=== PATIENT | female | born 1990 | race Caucasian/White ===

== ENCOUNTER 2017-05-28 09:15 | Observation (INO) ==
[2017-05-28] MEDS ORDERED: Naloxone 0.4 MG/ML INJ IVP PRN (15:22)
[2017-05-28] MEDS ORDERED: Acetaminophen 325 MG TABLET PO PRN (15:23)
--- NOTE | 2017-05-28 15:45 | Internal Med History&Physical ---
<Violet Mcguire - Last Filed: 05/28/17 16:27> Date of Encounter: 05/28/17 Time of Encounter: 14:00 Assessment and Plan (1) Abdominal pain Current visit: Yes Status: Chronic For the past 3 weeks patient has been expressing lower abdominal pain with cramping, as well as nausea vomiting diarrhea. She has had a 7 pound weight loss in [address] completed May 16 demonstrated normal large bowel and small bowel prominent stranding and multiple enlarged lymph nodes within the enteric root. No leukocytosis no fever we will keep patient nothing by mouth for now we have consulted GI 2 we will give IV fluids 3 Zofran for nausea, morphine for pain Qualifiers: Abdominal location: lower abdomen, unspecified Qualified Code(s): R10.30 - Lower abdominal pain, unspecified (2) Diarrhea Current visit: Yes Status: Chronic 1 patient has been experiencing loose watery diarrhea for the past 3 weeks. We will obtain GI panel and stool for C. difficile 2 we will give IV fluids 3 monitor electrolytes and replace as needed Qualifiers: Diarrhea type: unspecified type Qualified Code(s): R19.7 - Diarrhea, unspecified (3) Nausea & vomiting Current visit: Yes Status: Chronic 1 patient has been experiencing daily nausea and vomiting for the past 3 weeks she has had a 7 pound weight loss. She did have episode of quarter size bright red blood this a.m. in her vomitus. 2 continue with IV fluids 3 Zofran for nausea 4 monitor electrolytes and replace as needed 5 Protonix IV daily Qualifiers: Vomiting type: unspecified Vomiting Intractability: non-intractable Qualified Code(s): R11.2 - Nausea with vomiting, unspecified (4) Lymph node enlargement Current visit: Yes Status: Acute 1 patient has been experiencing abdominal pain nausea vomiting diarrhea over the past 3 weeks she has had a 7 pound weight loss as well. No fevers or leukocytosis. CT of her abdomen completed May 16 of this year did not reveal prominent stranding and multiple enlarged lymph nodes within the mesenteric root. -Unsure if this is reactive or neoplastic etiology. We will check HIV as well as uric acid and LDH (5) DVT prophylaxis Current visit: Yes Status: Acute 1 Lovenox [facility] Internal Medicine - H&P: HPI Chief complaint: abd pain N/V/D Admitted From: Emergency Dept Plans for Post Hospital Care: Home History of present illness: Ms. Walker is a 26 year old female with no past medical history. According to the patient she has been experiencing for the past 3 weeks nausea vomiting diarrhea lower abdominal pain. She states that every morning she gets up and she vomits. She has chronic lower abdominal pain she describes as dull to cramping for a 10. There are no aggravating or relieving factors. She has several loose watery stools throughout the day sometimes she states every 10 minutes. She has lost approximately 7 pounds over the past 3 weeks. Associated symptoms include anorexia fatigue and weakness. She has also noticed a decrease in her urine output over the past few weeks She denies any fevers chills chest pain or shortness of breath. She denies any melena or hematochezia She did have a CT scan of abdomen at [facility] approximately a week ago for the same symptoms that time the CT did show multiple enlarged lymph glands which cannot exclude lymphoma. While at [facility] wet prep was completed which was negative she was given , however it did not provide any relief. She has not had any past history of Crohn's as well that is no past history in her family. Today she awoke and began to vomit she states she vomited a couple times and noted that there was a small amount approximately quarter size spot of blood in her vomitus. [facility] She was transferred to [place] for further workup and evaluation. Presently patient does not appear to be in any pain or discomfort. She denies any shortness of breath or chest pain. Her abdomen is soft tender to palpation to lower quadrant no guarding and no distention no pulsating mass no hepatosplenomegaly no tenderness at McBurney's point and negative Aranda sign. There was a palpable lymph node in left inguinal area. Her lung sounds are clear her heart sounds are regular S1-S2 no rubs, gallops murmurs. Prior to this incident the patient states she was in her usual state of health. Presently she is hemodynamically stable I reviewed this case with Dr. Loja who agrees with plan. Past Med Surg Social Fam HX - Past Medical History Medical history: no medical history Psychiatric history: no psych history - Social History Smoking Status: Never smoker Smokeless Tobacco Status: No Alcohol use: none Drug use: none - Family History Mother Adopted: [place]: Lamar Walker Age: 44 Living Status: Still Living Hx Family Cardiac Disorders: No Hx Family Respiratory Disorders: No Hx Family Cancer: No Hx Family GI Disorders: No Hx Family Genitourinary Disorders: No Hx Family Endocrine Disorder: No Hx Family Musculoskeletal Disorders: No Hx Family Neuromuscular Disorders: No Hx Family Neurologic Disorders: No Hx Family HEENT Disorders: No Hx Family Autoimmune Disorders: No Hx Family Reproductive Disorders: No Hx Family Psychosocial Disorders: No Hx Family Medical Disorders: No Internal Medicine - H&P: Meds Dicyclomine [Bentyl] 10 mg PO TID 05/28/17 [History] 3 Allergy/AdvReac Type Severity Reaction Status Date / Time Penicillins Allergy Hives Verified 05/28/17 14:36 All Systems PM: A 10-system review of systems was performed and is negative for pertinent findings except as documented above in the HPI. - Constitutional Constitutional: fatigue, lethargy, weight loss, no chills, no fever(s), no night sweats - Cardiovascular Cardiovascular ROS IM: no chest pain, no diaphoresis, no dyspnea, no lightheadedness, no palpitations, no syncope - Respiratory Respiratory: no cough, no dyspnea, no wheezing, no excessive phlegm production - Gastrointestinal Gastrointestinal: abdominal pain, cramping, diarrhea, nausea, vomiting - Constitutional Vitals: Temp Pulse Resp BP Pulse Ox 97.3 F L 79 15 106/67 97 05/28/17 11:40 05/28/17 11:40 05/28/17 11:40 05/28/17 11:40 05/28/17 11:40 General appearance: Present: A&O X 3, answers questions appropriately - Head Head exam: Present: atraumatic, normocephalic - Eye Eye exam: Present: PERRL, conjuntiva pink, sclera anicteric Pupils: Present: PERRL - Neck Neck exam general surgery: Present: supple, trachea midline. Absent: lymphadenopathy - Respiratory Respiratory exam: Present: CTAB. Absent: accessory muscle use, rales, rhonchi, wheezes - Cardiovascular Cardiovascular exam: Present: RRR, +S1, +S2. Absent: diastolic murmur, gallop, rubs, systolic murmur - GI/Abdominal GI/Abdominal exam: Present: normal bowel sounds, soft, tenderness, no peritoneal signs. Absent: distended - Extremities Exam Extremities exam: Present: warm, radial pulses palpable and symmetrical. Absent : calf tenderness, cyanotic, pedal edema - Neurological Exam Neurological exam: Present: CN II-XII intact, oriented X3, no focal deficits. Absent: pronater drift, facial droop, speech deficit <Madhu Loja - Last Filed: 05/28/17 19:52> Date of Encounter: 05/28/17 Internal Medicine - H&P: HPI History of present illness: Ms. Walker is a 26 year old female All Systems PM: A 10-system review of systems was performed and is negative for pertinent findings except as documented above in the HPI. - Constitutional Vitals: Temp Pulse Resp BP Pulse Ox 98.6 F 75 15 106/64 98 05/28/17 19:39 05/28/17 19:39 05/28/17 19:39 05/28/17 19:39 05/28/17 19:39 - Attending Attestation I independently obtained history and examined this patient and my medical decision-making was reviewed with the nurse practitioner. I agree with the documented findings, disposition and treatment plan as described. My findings are summarized below: Abdomen is soft, nontender, nondistended. There is no pathological lymphadenopathy in the cervical axillary and inguinal signs. Plan: Follow stool GI. Nothing by mouth for hematemesis. GI consult. IV fluids. Protonix twice a day.
[2017-05-28] MEDS: 0.9 % Sodium Chloride 1,000 ML IVC SCH (16:36)
[2017-05-28 18:34] LABS: C.difficile Toxin A/B by PCR Not detected (Not detect); Campylobacter by PCR Not detected (Not detect); Cryptosporidium by PCR Not detected (Not detect); Cyclospora cayetanensis PCR Not detected (Not detect); E. coli O157 by PCR Not detected (Not detect); Entamoeba histolytica PCR Not detected (Not detect); Enteroaggregative E.coli(EAEC) Not detected (Not detect); Enteropathogenic E.coli(EPEC) Not detected (Not detect); Enterotoxigenic E.coli (ETEC) Not detected (Not detect); Plesiomonas shigelloides PCR Not detected (Not detect); Salmonella PCR Not detected (Not detect); Shig/EnteroinvasiveE coli EIEC Not detected (Not detect); Shigalike tox-prod E coli STEC Not detected (Not detect); Vibrio PCR Not detected (Not detect); Vibrio cholerae PCR Not detected (Not detect); Yersinia enterocolitica PCR Not detected (Not detect)
[2017-05-28 18:40] LABS: Adenovirus F 40/41 PCR Not detected (Not detect); Astrovirus PCR Not detected (Not detect); Giardia lamblia PCR ***DETECTED*** (Not detect); Norovirus GI/GII PCR Not detected (Not detect); Rotavirus A PCR Not detected (Not detect); Sapovirus PCR Not detected (Not detect)
--- NOTE | 2017-05-28 19:35 | Event Note ---
Date of Encounter: 05/28/17 Time of Encounter: 19:31 Notified per lab patient's stool positive for Giardia [place] patient denies any recent travel outside of country. We will initiate on Flagyl IV. Did discuss with the patient HIV testing which she did agree. HIV was negative Reviewed with Dr Loja who agrees with plan
[2017-05-28] MEDS: *HR* Morphine 2 MG/ML SYRINGE IVP PRN (22:42)
[2017-05-29] MEDS: MetroNIDAZOLE 500 MG/100 ML 500 MG/100 ML BAG IVPB SCH ×4 (00:31→23:22)
[2017-05-29] MEDS ORDERED: *HR* Dextrose 50 % in Water (Syg) 50 ML SYRINGE IVP ONE (05:17)
[2017-05-29] MEDS: Ondansetron 4 MG/2 ML VIAL IVP PRN ×2 (06:29→13:22)
[2017-05-29] MEDS: 0.9 % Sodium Chloride 1,000 ML IVC SCH (06:30)
[2017-05-29] MEDS: *HR* Enoxaparin 40 MG/0.4 ML SYRINGE SQ SCH (06:30)
[2017-05-29] MEDS: Pantoprazole 40 MG VIAL IVP SCH ×2 (06:30→19:31)
[2017-05-29 06:53] LABS: Basophils % 0.5 %; Eosinophils # 0.1 K/mcL (0.0-0.6); Eosinophils % 1.1 %; Hematocrit 35.6 % (35.3-44.9); Hemoglobin 11.7 g/dL (11.5-15.4); Immature Granulocytes % 0.3 % (0-4); Lymphocytes # 1.4 K/mcL (0.6-4.6); Lymphocytes % 22.8 %; Mean Corpuscular HGB Conc 32.9 g/dL (31.6-35.5); Mean Corpuscular Hemoglobin 29.5 pg (28.0-33.3); Mean Corpuscular Volume 89.7 fL (83.0-100.0); Mean Platelet Volume 8.2 fL (9.4-12.4); Monocytes # 0.6 K/mcL (0.0-1.3); Neutrophils # 4.1 K/mcL (1.6-8.9); Platelet Count 147 K/mcL (140-400); Red Blood Count 3.97 M/mcL (3.82-4.97); Segmented Neutrophils % 66.3 %
[2017-05-29 06:57] LABS: BUN/Creatinine Ratio 16 (6-26); Blood Urea Nitrogen 12 mg/dL (7-20); Calcium 8.6 mg/dL (8.6-10.8); Carbon Dioxide 20 mEq/L (19-29); Chloride 106 mEq/L (98-109); Glucose 95 mg/dL (70-99); Magnesium 1.4 mg/dL (1.6-2.6); Osmolality,Calculated 280 (280-300); Potassium 3.9 mEq/L (3.5-4.5); Sodium 135 mEq/L (136-145); eGFR For African Americans > 60 (> 60); eGFR For Non-African Americans > 60 (> 60)
[2017-05-29] MEDS ORDERED: Pantoprazole 40 MG VIAL IVP SCH (09:00)
[2017-05-29] MEDS ORDERED: Magnesium Sulfate 2 GM in D5% in Water 100 ML IVPB ONE (09:09)
--- NOTE | 2017-05-29 11:38 | Internal Med Progress Note ---
<Azar Rodriguez - Last Filed: 05/29/17 14:00> Date of Encounter: 05/29/17 - Constitutional Vitals: Temp Pulse Resp BP Pulse Ox 97.7 F 68 15 99/52 98 05/29/17 10:50 05/29/17 10:50 05/29/17 10:50 05/29/17 10:50 05/29/17 10:50 Internal Medicine: Result - Labs CBC & Chem 7: 05/29/17 06:27 05/29/17 06:27 Labs: Short CBC 05/29/17 Range/Units 06:27 WBC 6.1 (4.3-11.1) K/mcL Hgb 11.7 (11.5-15.4) g/dL Hct 35.6 (35.3-44.9) % Plt Count 147 (140-400) K/mcL Neutrophils # 4.1 (1.6-8.9) K/mcL BMP 05/29/17 06:27 Sodium 135 L Potassium 3.9 Chloride 106 Carbon Dioxide 20 BUN 12 Creatinine 0.77 Glucose 95 Calcium 8.6 Consult Discharge Plan - Plan Referrals: NONE,PCP [Primary Care Provider] - Bobby Jaffe MD [place] [Family Provider] - - Attending Attestation I have independently seen and examined this patient on 05/29/17 and discussed plan of care with the patient and the resident 26F with no PMH 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 Zofran for nausea, Patient is clinically stable Rest of details as in resident physician's documentation <Jocelin Ribera H - Last Filed: 05/29/17 16:18> Date of Encounter: 05/29/17 Time of Encounter: 11:00 - Assessment and plan (1) Diarrhea due to protozoan Current Visit: Yes Status: Acute Assessment and plan: Stool panel positive for Giardia. -Patient is receiving IV Flagyl. We have stopped the IV Flagyl tonight after midnight and will transition her to oral Flagyl. -If patient is not having any diarrhea tomorrow, we will discharge home -GI saw the patient and recommends continuation of care with repletion of electrolytes as needed. (2) Abdominal pain Current Visit: Yes Status: Chronic Assessment and plan: Patient still having mild abdominal pain. Continue treatment with Zofran and pain medications. Qualifiers: Abdominal location: lower abdomen, unspecified Qualified Code(s): R10.30 - Lower abdominal pain, unspecified (3) Diarrhea Current Visit: Yes Status: Chronic Assessment and plan: Patient still having diarrhea. We will treat her underlying infection and monitor for improvements. Qualifiers: Diarrhea type: unspecified type Qualified Code(s): R19.7 - Diarrhea, unspecified (4) Lymph node enlargement Current Visit: Yes Status: Acute Assessment and plan: CT scan of abdomen and pelvis shows some lymphadenopathy at the root of the mesentery. This is likely related to patient's infection with Giardia protozoa. -No interventions at this time. (5) DVT prophylaxis Current Visit: Yes Status: Acute Assessment and plan: Lovenox. - Subjective Interval history: Mr. Walker is a 26-year-old female with no past medical history who presented to the hospital with 3 weeks of nauseavomiting and diarrhea. She was found to be positive for Giardia. She was started on Flagyl in the hospital. This morning she is resting comfortably, although she says she is still having diarrhea. She does complain of some mild abdominal tenderness as well. - Constitutional Vitals: Temp Pulse Resp BP Pulse Ox 97.7 F 68 15 99/52 98 05/29/17 10:50 05/29/17 10:50 05/29/17 10:50 05/29/17 10:50 05/29/17 10:50 General appearance: Present: A&O X 3, answers questions appropriately - Respiratory Respiratory exam: Present: CTAB. Absent: accessory muscle use, rales, rhonchi, wheezes - Cardiovascular Cardiovascular exam: Present: RRR, +S1, +S2. Absent: diastolic murmur, gallop, rubs, systolic murmur - GI/Abdominal GI/Abdominal exam: Present: soft, tenderness (lower abdominal pain, mild). Absent: distended, guarding, rebound - Extremities Exam Extremities exam: Present: warm, radial pulses palpable and symmetrical. Absent : calf tenderness, cyanotic, pedal edema Internal Medicine: Result - Labs CBC & Chem 7: 05/29/17 06:27 05/29/17 06:27 Labs: Short CBC 05/29/17 Range/Units 06:27 WBC 6.1 (4.3-11.1) K/mcL Hgb 11.7 (11.5-15.4) g/dL Hct 35.6 (35.3-44.9) % Plt Count 147 (140-400) K/mcL Neutrophils # 4.1 (1.6-8.9) K/mcL BMP 05/29/17 06:27 Sodium 135 L Potassium 3.9 Chloride 106 Carbon Dioxide 20 BUN 12 Creatinine 0.77 Glucose 95 Calcium 8.6
--- NOTE | 2017-05-29 11:59 | Gastroenterology Consult Note ---
<Claudia Urias - Last Filed: 05/29/17 11:52> Date of Encounter: 05/29/17 Time of Encounter: 10:15 - Assessment and plan (1) Diarrhea due to protozoan Current Visit: Yes Status: Acute Assessment and plan: Pt presents with 3 week history of diarrhea, nausea and vomiting. Stool studies were positive for giardia. She has been started on flagyl. She has also been treated with IVF and protonix. Electrolytes need monitored and replaced as needed. - Time Spent With Patient Total time spent is greater than 50% in coordination of care (as documented) at patient's floor/unit and/or counseling patient: GI History of Present Illness - Data of Consult Patient: new to practice Consult date: 05/29/17 Requesting Physician: Azar Rodriguez MD - Consult Narrative Reason for consult: nausea/vomiting diarrhea History of present illness: Ms. Walker is a 26 year old female who presented with a 3 week history of nausea, vomiting, diarrhea and weight loss. She denies any chronic medical conditions. She has past sx hx of tubal ligation only. She reports diarrhea with yellow-green watery stool with occasional blood streaks numerous times a day for the past 3 weeks, (states "too many to count"). She denies mucus in stools. She also had nausea and vomiting x 2 yesterday. She reports lower abdominal pain and tenderness. She denies fever or chills. She denies any sick contacts. She had a CT abdomen on 05/16/17 which showed enteric stranding and some adenopathy. She has been on bentyl with minimal relief at home. Labs show hgb 11.7, NA 135, TSH 1.1, HIV -, stool culture was positive for giardia. Colonoscopy: denies EGD: denies NSAIDS: on occasiona takes ibuprofen ASA: denies Anticougulants: denies Past Med Surg Social Fam HX - Past Medical History Medical history: no medical history Psychiatric history: no psych history - Social History Smoking Status: Never smoker Smokeless Tobacco Status: No Alcohol use: none Drug use: none - Family History Mother Adopted: [place]: Lamar Walker Age: 44 Living Status: Still Living Hx Family Cardiac Disorders: No Hx Family Respiratory Disorders: No Hx Family Cancer: No Hx Family GI Disorders: No Hx Family Genitourinary Disorders: No Hx Family Endocrine Disorder: No Hx Family Musculoskeletal Disorders: No Hx Family Neuromuscular Disorders: No Hx Family Neurologic Disorders: No Hx Family HEENT Disorders: No Hx Family Autoimmune Disorders: No Hx Family Reproductive Disorders: No Hx Family Psychosocial Disorders: No Hx Family Medical Disorders: No - Constitutional Vitals: Temp Pulse Resp BP Pulse Ox 97.7 F 68 15 99/52 98 05/29/17 10:50 05/29/17 10:50 05/29/17 10:50 05/29/17 10:50 05/29/17 10:50 Exam: CONSTITUTIONAL:~alert, no acute distress.~HEAD:~normocephalic.~EYES:~no jaundice.~NECK:~no obvious swelling.~HEART:~regular rate and rhythm, no murmurs. ~LUNGS:~bilateral good air entry.~ABDOMEN:~non distended, soft, tender bilateral lower quadrants, no masses pulpable, no organomegaly.~RECTAL EXAM:~ Deferred.~EXTREMITIES:~no clubbing, cyanosis or edema.~SKIN:~no stigmata of chronic liver disease.~NEUROLOGIC:~no obvious focal defect.~~~~ Results - Labs CBC & Chem 7: 05/29/17 06:27 05/29/17 06:27 Labs: Last Result Calcium 8.6 mg/dL (8.6-10.8) 05/29/17 06:27 Entire Visit Hgb 11.7 g/dL (11.5-15.4) 05/29/17 06:27 Hct 35.6 % (35.3-44.9) 05/29/17 06:27 Consult Discharge Plan - Plan Referrals: Bobby Jaffe MD [place] [Family Provider] - NONE,PCP [Primary Care Provider] - <Cristino Danielson - Last Filed: 05/29/17 17:55> Date of Encounter: 05/29/17 Time of Encounter: 17:20 - Time Spent With Patient Total time spent is greater than 50% in coordination of care (as documented) at patient's floor/unit and/or counseling patient: GI History of Present Illness - Data of Consult Requesting Physician: Azar Rodriguez MD - Consult Narrative History of present illness: Ms. Walker is a 26 year old female - Constitutional Vitals: Temp Pulse Resp BP Pulse Ox 98.1 F 75 15 107/59 99 05/29/17 15:28 05/29/17 15:28 05/29/17 15:28 05/29/17 15:28 05/29/17 15:28 Results - Labs CBC & Chem 7: 05/29/17 06:27 10 06:27 Labs: Last Result Calcium 8.6 mg/dL (8.6-10.8) 05/29/17 06:27 Entire Visit Hgb 11.7 g/dL (11.5-15.4) 05/29/17 06:27 Hct 35.6 % (35.3-44.9) 05/29/17 06:27 - Attending Attestation I examined this patient and my medical decision-making was reviewed with the Resident Physician. I agree with the documented findings, disposition and treatment plan as described except to the extent set forth below.
[2017-05-29] MEDS: *HR* Morphine 2 MG/ML SYRINGE IVP PRN (15:49)
[2017-05-30] MEDS: *HR* Enoxaparin 40 MG/0.4 ML SYRINGE SQ SCH (06:09)
[2017-05-30] MEDS: Pantoprazole 40 MG VIAL IVP SCH (06:10)
[2017-05-30 06:44] LABS: Carbon Dioxide 25 mEq/L (19-29); Chloride 107 mEq/L (98-109); Potassium 4.1 mEq/L (3.5-4.5); Sodium 137 mEq/L (136-145)
[2017-05-30 06:45] LABS: BUN/Creatinine Ratio 8 (6-26); Blood Urea Nitrogen 6 mg/dL (7-20); Calcium 9.1 mg/dL (8.6-10.8); Glucose 98 mg/dL (70-99); Osmolality,Calculated 282 (280-300); eGFR For African Americans > 60 (> 60); eGFR For Non-African Americans > 60 (> 60)
[2017-05-30 07:07] LABS: Basophils % 0.5 %; Eosinophils # 0.1 K/mcL (0.0-0.6); Eosinophils % 2.1 %; Hematocrit 36.1 % (35.3-44.9); Hemoglobin 12.2 g/dL (11.5-15.4); Immature Granulocytes % 0.2 % (0-4); Lymphocytes # 1.7 K/mcL (0.6-4.6); Lymphocytes % 28.8 %; Mean Corpuscular HGB Conc 33.8 g/dL (31.6-35.5); Mean Corpuscular Hemoglobin 29.6 pg (28.0-33.3); Mean Corpuscular Volume 87.6 fL (83.0-100.0); Mean Platelet Volume 8.4 fL (9.4-12.4); Monocytes # 0.5 K/mcL (0.0-1.3); Neutrophils # 3.5 K/mcL (1.6-8.9); Platelet Count 173 K/mcL (140-400); Red Blood Count 4.12 M/mcL (3.82-4.97); Red Cell Distribution Width 13.1 % (11.5-14.5); Segmented Neutrophils % 59.4 %
--- NOTE | 2017-05-30 08:39 | Internal Med Progress Note ---
<Azar Rodriguez - Last Filed: 05/30/17 16:12> Date of Encounter: 05/30/17 - Constitutional Vitals: Temp Pulse Resp BP Pulse Ox 98.0 F 65 15 98/63 97 05/30/17 15:47 05/30/17 15:47 05/30/17 15:47 05/30/17 15:47 05/30/17 15:47 Internal Medicine: Result - Labs CBC & Chem 7: 05/30/17 06:22 05/30/17 06:22 Labs: Short CBC 05/30/17 Range/Units 06:22 WBC 5.8 (4.3-11.1) K/mcL Hgb 12.2 (11.5-15.4) g/dL Hct 36.1 (35.3-44.9) % Plt Count 173 (140-400) K/mcL Neutrophils # 3.5 (1.6-8.9) K/mcL BMP 05/30/17 06:22 Sodium 137 Potassium 4.1 Chloride 107 Carbon Dioxide 25 BUN 6 L Creatinine 0.78 Glucose 98 Calcium 9.1 Consult Discharge Plan - Plan Referrals: Bobby Jfafe MD [place] [Family Provider] - NONE,PCP [Primary Care Provider] - - Attending Attestation I have independently seen and examined this patient on 05/30/17 and discussed plan of care with the patient and the resident 26F with no PMH 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 Anticipate discharge a.m Rest of details as in resident physician's documentation <Jocelin Ribera H - Last Filed: 05/30/17 16:22> Date of Encounter: 05/30/17 Time of Encounter: 08:37 - Assessment and plan (1) Diarrhea due to protozoan Current Visit: Yes Status: Acute Assessment and plan: Stool panel positive for Giardia. -Patient is receiving IV Flagyl. We have stopped the IV Flagyl yesterday and have transitioned her to oral this morning. -If patient is not having any diarrhea tomorrow, we will discharge home -GI saw the patient and recommends continuation of care with repletion of electrolytes as needed. (2) Abdominal pain Current Visit: Yes Status: Chronic Assessment and plan: Patient still having mild abdominal pain. Continue treatment with Zofran and pain medications. Qualifiers: Abdominal location: lower abdomen, unspecified Qualified Code(s): R10.30 - Lower abdominal pain, unspecified (3) Diarrhea Current Visit: Yes Status: Chronic Assessment and plan: Patient still having diarrhea. Showing improvements. We will treat her underlying infection and monitor for improvements. Qualifiers: Diarrhea type: unspecified type Qualified Code(s): R19.7 - Diarrhea, unspecified (4) Lymph node enlargement Current Visit: Yes Status: Acute Assessment and plan: CT scan of abdomen and pelvis shows some lymphadenopathy at the root of the mesentery. This is likely related to patient's infection with Giardia protozoa. -No interventions at this time. (5) DVT prophylaxis Current Visit: Yes Status: Acute Assessment and plan: Lovenox. - Subjective Interval history: Mr. Walker is a 26-year-old female with no past medical history who presented to the hospital with 3 weeks of nauseavomiting and diarrhea. She was found to be positive for Giardia. She was started on Flagyl in the hospital. This morning she is resting comfortably, although she says she is still having diarrhea. She does say it has decreased in frequency as her last bowel movement was 2 AM. She describes its consistency is improving from watery to yellowish greenish. She does complain of some mild abdominal tenderness as well that she is unsure if it has improved from yesterday. - Constitutional Vitals: Temp Pulse Resp BP Pulse Ox 98.4 F 67 16 94/55 96 05/30/17 07:02 05/30/17 07:02 05/30/17 07:02 05/30/17 07:02 05/30/17 07:02 General appearance: Present: A&O X 3, answers questions appropriately - Respiratory Respiratory exam: Present: CTAB. Absent: accessory muscle use, rales, rhonchi, wheezes - Cardiovascular Cardiovascular exam: Present: RRR, +S1, +S2. Absent: diastolic murmur, gallop, rubs, systolic murmur - GI/Abdominal GI/Abdominal exam: Present: normal bowel sounds, soft, tenderness (Mild in the bilateral lower quadrants), no peritoneal signs. Absent: distended - Extremities Exam Extremities exam: Present: warm, radial pulses palpable and symmetrical. Absent : calf tenderness, cyanotic, pedal edema Internal Medicine: Result - Labs CBC & Chem 7: 05/30/17 06:22 05/30/17 06:22 Labs: Short CBC 05/30/17 Range/Units 06:22 WBC 5.8 (4.3-11.1) K/mcL Hgb 12.2 (11.5-15.4) g/dL Hct 36.1 (35.3-44.9) % Plt Count 173 (140-400) K/mcL Neutrophils # 3.5 (1.6-8.9) K/mcL BMP 05/29/17 05/30/17 06:27 06:22 Sodium 135 L 137 Potassium 3.9 4.1 Chloride 106 107 Carbon Dioxide 20 25 BUN 12 6 L Creatinine 0.77 0.78 Glucose 95 98 Calcium 8.6 9.1
[2017-05-30] MEDS: metroNIDAZOLE 250 MG TABLET PO SCH ×3 (09:57→21:30)
[2017-05-30] MEDS: *HR* Morphine 2 MG/ML SYRINGE IVP PRN (10:06)
[2017-05-30] MEDS ORDERED: *HR* OxyCODONE/APAP 5/325 TABLET PO PRN (16:10)
[2017-05-31] MEDS: Ondansetron 4 MG/2 ML VIAL IVP PRN (06:12)
[2017-05-31] MEDS: *HR* Enoxaparin 40 MG/0.4 ML SYRINGE SQ SCH (06:12)
[2017-05-31 08:28] VITALS: BP 99/63
[2017-05-31] MEDS: metroNIDAZOLE 250 MG TABLET PO SCH (09:17)
--- NOTE | 2017-05-31 13:12 | Discharge Summary ---
<NedhangJocelin lyons H - Last Filed: 05/31/17 13:18> Date of Encounter: 05/31/17 Time of Encounter: 13:08 - Discharge Diagnosis (1) Diarrhea due to protozoan Priority: Primary Status: Acute (2) Abdominal pain Priority: Secondary Status: Chronic Qualifiers: Abdominal location: lower abdomen, unspecified Qualified Code(s): R10.30 - Lower abdominal pain, unspecified (3) Diarrhea Priority: Secondary Status: Chronic Qualifiers: Diarrhea type: unspecified type Qualified Code(s): R19.7 - Diarrhea, unspecified (4) Lymph node enlargement Priority: Secondary Status: Acute (5) DVT prophylaxis Priority: Secondary Status: Acute - Discharge Medications Prescriptions: OxyCODONE/APAP 5/325 [Percocet 5/325 MG] 1 each PO Q6HR PRN #10 tablet PRN Reason: Moderate-Severe Pain metroNIDAZOLE [Flagyl] 250 mg PO TID 5 Days #15 tablet Ondansetron HCl [Zofran] 4 mg PO TID PRN #15 tablet PRN Reason: Nausea Home Medications: Dicyclomine [Bentyl] 10 mg PO TID 05/28/17 [History] Ondansetron HCl [Zofran] 4 mg PO TID PRN #15 tablet 05/31/17 [Rx] OxyCODONE/APAP 5/325 [Percocet 5/325 MG] 1 each PO Q6HR PRN #10 tablet 05/31/17 [Rx] metroNIDAZOLE [Flagyl] 250 mg PO TID 5 Days #15 tablet 05/31/17 [Rx] Allergies/Adverse Reactions: 3 Allergy/AdvReac Type Severity Reaction Status Date / Time Penicillins Allergy Hives Verified 05/28/17 14:36 Date of admission: 05/28/17 11:37 Primary care physician: PCP NONE - Patient Status Disposition: Home, Self-Care Condition: Good Functional capacity at discharge: independent ambulation Overall status at discharge: patient is progressing back to baseline - Discharge Instructions Follow Up With: [place] [Other] - 06/05/17 11:00 am Additional Instructions: Please continue to finish the course of antibiotics we have prescribed for you. It is important that you complete the remaining 5 days of antibiotic therapy, even if your symptoms resolve. This antibiotic, metronidazole, can cause a severe reaction if you drink alcohol while taking it. Please refrain from any alcoholic beverages for 5 days. Please follow-up with your primary care provider in the next 2 weeks. - Diet and Activity Activity: increase activity as tolerated Diet: advance to your usual diet Hospital course: Ms. Walker is a 26 year old female with no past medical history. She presented to [facility] on 05/28/2017 complaining of a three- week history of abdominal pain with cramping, nausea, vomiting, profuse watery diarrhea. She had a 7 pound weight loss in [address] examination on May 16 demonstrated large bowel and small bowel stranding with multiple enlarged lymphadenopathy within the enteric bruit. She had no leukocytosis or fever upon admission, however a stool sample was obtained. Patient was treated with IV fluids, Zofran, and morphine during her hospitalization. GI stool panel testing revealed positive infection with Giardia. Patient was then started on metronidazole for protozoan gastroenteritis. Patient's diarrhea ceased over the next 2 days. Patient stated this morning that she was feeling much better. She denied any abdominal pain, nausea, or vomiting. She stated her stools were becoming more formed and less watery. She felt comfortable with discharge. All questions were answered and the patient expressed understanding of the plan. Patient was discharged home with an additional 5 days of oral metronidazole. Patient is to follow-up with her primary care provider next week. - Time Spent with Patient Total time spent providing and/or coordinating discharge services: Greater than 30 minutes (40 minutees) - Constitutional Vitals: Temp Pulse Resp BP Pulse Ox 97.9 F 73 15 99/63 100 05/31/17 08:25 05/31/17 08:25 05/31/17 08:25 05/31/17 08:25 05/31/17 09:25 General appearance: Present: A&O X 3, answers questions appropriately - Respiratory Respiratory exam: Present: CTAB. Absent: accessory muscle use, rales, rhonchi, wheezes - Cardiovascular Cardiovascular exam: Present: RRR, +S1, +S2. Absent: diastolic murmur, gallop, rubs, systolic murmur - GI/Abdominal GI/Abdominal exam: Present: normal bowel sounds, soft, no peritoneal signs. Absent: distended, tenderness - Extremities Exam Extremities exam: Present: warm, radial pulses palpable and symmetrical. Absent : calf tenderness, cyanotic, pedal edema <Azar Rodriguez - Last Filed: 05/31/17 14:07> Date of Encounter: 05/31/17 Date of admission: 05/28/17 11:37 Primary care physician: PCP NONE Hospital course: Ms. 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 Her physical exam is unremarkable Labs are normal today A/P: Giardiasis: Discharge on po Flagyl, and follow up with PCP. Plan of care discussed , verbalized understanding Rest of details as in resident physician's documentation
== END 2017-05-31 15:36 | disposition home or self-care (01) ==
LOC: 3ANU → SUATTDRO 11:37
PROVIDERS: ADMIT Internal Medicine; ATTEND Internal Medicine